=== PATIENT | male | born 1970 ===

== ENCOUNTER 2016-06-27 10:10 | Emergency (ER) | payer BC ==
[2016-06-27 10:20] VITALS: RESP 18
--- NOTE | 2016-06-27 10:28 | C.PDOC ---
History Of Present Illness 45 y/o male presents to the ED with complains of pain near left ear radiating down his jaw. Pain has been constant x1 week, worse at night and when chewing food. Pt took Ibuprofen without relief. Denies weakness, numbness, headache, vision or hearing changes, chest pain, SOB or any other complaints. Time Seen by Provider: 06/27/16 10:27 Chief Complaint (Nursing): Weakness/Neurological Deficit History Per: Patient History/Exam Limitations: no limitations Onset/Duration Of Symptoms: Days, Persistent Current Symptoms Are (Timing): Still Present Past Medical History Reviewed: Historical Data, Nursing Documentation, Vital Signs Vital Signs: Last Vital Signs Temp 98.2 F 06/27/16 13:55 Pulse 67 06/27/16 13:55 Resp 18 06/27/16 13:55 BP 147/98 H 06/27/16 13:55 Pulse Ox 98 06/27/16 13:55 Family History: States: Unknown Family Hx Review Of Systems Except As Marked, All Systems Reviewed And Found Negative. Constitutional: Negative for: Fever Eyes: Negative for: Vision Change Cardiovascular: Negative for: Chest Pain Respiratory: Negative for: Shortness of Breath Musculoskeletal: Positive for: Other (pain near left ear radiating down jaw) Neurological: Negative for: Weakness, Numbness, Headache Physical Exam - Physical Exam Appears: Non-toxic, No Acute Distress Skin: Warm, Dry, No Rash Head: Atraumatic, Normacephalic Eye(s): bilateral: PERRL, EOMI Ear(s): Bilateral: Normal Nose: Normal Neck: Normal, Normal ROM, Supple Chest: Symmetrical Cardiovascular: Rhythm Regular, No Murmur Respiratory: Normal Breath Sounds, No Rales, No Rhonchi, No Wheezing Extremity: Normal ROM Extremity: Bilateral: Atraumatic Neurological/Psych: Oriented x3, Normal Speech, Normal Cognition, Normal Motor, Normal Sensation ED Course And Treatment - Laboratory Results Result Diagrams: 06/27/16 11:42 06/27/16 11:42 O2 Sat by Pulse Oximetry: 99 (room air) Pulse Ox Interpretation: Normal Medical Decision Making Medical Decision Making: trigeminal neuralgia vs TMJ disorder vs other follow up and return precautions advised Disposition - Disposition Referrals: [facility] [Outside] Disposition: HOME/ ROUTINE Disposition Time: 12:56 Condition: STABLE Additional Instructions: Please follow up with your doctor in the next week. Return to the ER for any worsening symptoms or for nay other concerns. Prescriptions: metFORMIN [glucOPHAGE] 500 mg PO DAILY #30 tab Naproxen [Naprosyn] 500 mg PO Q12H PRN #10 tablet PRN Reason: Pain, Moderate (4-7) Instructions: Trigeminal Neuralgia (ED), Temporomandibular Disorder (ED) Forms: General Discharge Instructions - Clinical Impression Clinical Impression: Facial pain - Scribe Statement The provider has reviewed the documentation as recorded by the Lizeth Tipton Provider Attestation: All medical record entries made by the Lizeth were at my direction and personally dictated by me. I have reviewed the chart and agree that the record accurately reflects my personal performance of the history, physical exam, medical decision making, and the department course for this patient. I have also personally directed, reviewed, and agree with the discharge instructions and disposition.
[2016-06-27] MEDS ORDERED: Sodium Chloride 0.9% 1,000 ML IV ONE (11:34)
[2016-06-27 11:51] LABS: BASO # 0.1 K/uL (0.0-0.2); BASO % 1.1 % (0.0-2.0); EOS # 0.1 K/uL (0.0-0.7); EOS % 1.6 % (0.0-4.0); HEMATOCRIT 52.5 % (35.0-51.0); LYMPH # 1.7 K/uL (1.0-4.3); LYMPH % 29.9 % (20.0-40.0); MEAN CORPUSCULAR HEMOGLOBIN 27.3 pg (27.0-31.0); MEAN CORPUSCULAR HGB CONC 33.3 g/dL (33.0-37.0); MEAN PLATELET VOLUME 8.2 fL (7.2-11.7); MONO # 0.5 K/uL (0.0-0.8); MONO % 9.1 % (0.0-10.0); NRBC % 0.3 % (0.0-2.0); RED CELL DISTRIBUTION WIDTH 13.7 % (11.5-14.5); WHITE BLOOD COUNT 5.6 K/uL (4.8-10.8)
[2016-06-27 11:57] LABS: CHLORIDE 96 mmol/L (98-107); POTASSIUM 4.3 mmol/L (3.6-5.2); SODIUM 134 mmol/L (132-148)
[2016-06-27 11:59] LABS: AST/SGOT 29 U/L (17-59); BILIRUBIN,TOTAL 1.2 mg/dL (0.2-1.3); CARBON DIOXIDE 27 mmol/L (22-30); GFR AFRICAN-AMERICAN > 60
[2016-06-27 12:00] LABS: ALB/GLOB RATIO 2.2 (1.0-2.1); ALKALINE PHOSPHATASE 75 U/L (38-126); ALT/SGPT 41 U/L (21-72); BLOOD UREA NITROGEN 11 mg/dL (9-20); CALCIUM 9.7 mg/dl (8.6-10.4); GLUCOSE,RANDOM 390 mg/dL (75-110)
--- NOTE | 2016-06-27 12:44 | CT ---
PROCEDURE: CT HEAD WITHOUT CONTRAST. HISTORY: left side facial twitching, pain COMPARISON: None available. TECHNIQUE: Axial computed tomography images were obtained through the head/brain without intravenous contrast. Radiation dose: Total exam DLP = 958.95 mGy-cm. This CT exam was performed using one or more of the following dose reduction techniques: Automated exposure control, adjustment of the mA and/or kV according to patient size, and/or use of iterative reconstruction technique. FINDINGS: HEMORRHAGE: No intracranial hemorrhage. BRAIN: No mass effect or edema. The alexander-white matter differentiation appears intact. Please note that MRI with diffusion imaging is more sensitive in the detection of acute ischemic event. VENTRICLES: No hydrocephalus. CALVARIUM: Unremarkable. PARANASAL SINUSES: Unremarkable as visualized. No significant inflammatory changes. MASTOID AIR CELLS: Unremarkable as visualized. No inflammatory changes. OTHER FINDINGS: None. IMPRESSION: No acute intracranial pathology identified. Please note that MRI with diffusion imaging is more sensitive in the detection of acute ischemic event.
[2016-06-27 13:55] VITALS: BP 147/98; PULSE 67; TEMP 98.2
[2016-07-01 18:08] VITALS: O2SAT 99
== END 2016-06-27 13:45 | disposition home or self-care (01) ==
LOC: C.ER 10:10
DX: R51 Headache (principal)
CPT/HCPCS: 70450; 80053; 82948; 85025; 96361; 96374; 99285; J1885; J7040